=== PATIENT | female | born 1965 | race African-American/Black ===

== ENCOUNTER 2019-04-03 14:15 | Outpatient (CLI) | payer OTHER ==
--- NOTE | 2019-04-03 14:57 | RAD ---
LUMBAR SPINE 3 VIEWS: HISTORY: Disability evaluation. Low back pain radiating to both legs. FINDINGS/IMPRESSION: There are postop changes of laminectomy at L4 and L5 levels. 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 No acute fracture, subluxation, or bony destruction is seen. POS: [facility]
== END 2019-04-03 14:16 | disposition home or self-care (01) ==
LOC: NAV RAD 14:15
PROVIDERS: ATTEND Family Medicine
DX: Z02.71 Encounter for disability determination (principal); M51.17 Intervertebral disc disorders with radiculopathy, lumbosacral region; M47.26 Other spondylosis with radiculopathy, lumbar region; Z98.890 Other specified postprocedural states
CPT/HCPCS: 72100

== ENCOUNTER 2021-09-05 15:31 | Emergency (ER) | payer MEDICARE, OTHER ==
[2021-09-05] MEDS ORDERED: Ketorolac Tromethamine 60 MG/2 ML VIAL ONE (17:55)
== END 2021-09-05 18:00 | disposition home or self-care (01) ==
LOC: NAV ERS 15:31
DX: S42.141A Displaced fracture of glenoid cavity of scapula, right shoulder, initial encounter for closed fracture (principal); S80.02XA Contusion of left knee, initial encounter; S80.01XA Contusion of right knee, initial encounter; M54.2 Cervicalgia; M54.50 Low back pain, unspecified; M25.512 Pain in left shoulder; I10 Essential (primary) hypertension; K21.9 Gastro-esophageal reflux disease without esophagitis; E78.5 Hyperlipidemia, unspecified; E78.00 Pure hypercholesterolemia, unspecified; Z79.899 Other long term (current) drug therapy; W18.30XA Fall on same level, unspecified, initial encounter
CPT/HCPCS: 96372; J1885